=== PATIENT | female | born 1945 | race Caucasian/White ===

== ENCOUNTER 2017-07-28 07:58 | Outpatient (RCR) | payer MEDICARE | END 2017-07-29 | LOC: OT 07:58 | PROVIDERS: ATTEND Surgery Surgery of the Hand | DX: M18.11 Unilateral primary osteoarthritis of first carpometacarpal joint, right hand (principal); M25.441 Effusion, right hand | CPT/HCPCS: G8987; G8988; G8989; L3808 ==